=== PATIENT | female | born 1990 | race Caucasian/White ===

== ENCOUNTER → 2017-10-30 | Day surgery (SDC) | payer BC ==
[~2017-10-30] MED LIST: Oxytocin 10 UNITS/ML VIAL ONE
[2017-10-30 15:03] VITALS: BMI 28.0
== END ==
LOC: L&D/OP 14:30
PROVIDERS: ATTEND Family Medicine
DX: O47.9 False labor, unspecified (principal); O26.859 Spotting complicating pregnancy, unspecified trimester; Z79.899 Other long term (current) drug therapy
CPT/HCPCS: 99282

== ENCOUNTER 2017-10-31 00:13 | Inpatient (IN) | payer BC ==
[2017-10-31] MEDS ORDERED: Butorphanol Tartrate 1 MG/ML VIAL SLOW IVP PRN (02:02)
[2017-10-31] MEDS ORDERED: Ondansetron HCl/PF 4 MG/2 ML Vial IVP PRN ×2 (02:02→08:57)
[2017-10-31] MEDS ORDERED: Acetaminophen 500 MG TAB PO PRN (02:02)
[2017-10-31] MEDS ORDERED: Promethazine HCl 25 MG/ML VIAL IM PRN ×2 (02:02→05:19)
[2017-10-31 02:06] LABS: Hemoglobin 14.4 g/dL (12.0-16.0); Mean Corpuscular HGB CONC 33.9 g/dL (32.0-36.0); Mean Corpuscular Hemoglobin 31.1 pg (27.0-31.0); Mean Corpuscular Volume 91.7 fL (78.0-98.0); Mean Platelet Volume 7.7 fL (7.4-10.4); Platelet Count 249 thou/uL (130-400); Red Blood Cell (RBC) Count 4.64 mill/uL (4.20-5.40); White Blood Cell (WBC) Count 17.5 thou/uL (4.8-10.8)
[2017-10-31] MEDS ORDERED: Ibuprofen 800 MG TAB PO PRN (02:15)
[2017-10-31] MEDS ORDERED: Carboprost 250 MCG/ML AMP IM PRN (02:15)
[2017-10-31] MEDS ORDERED: NS / Oxytocin 40 units/1000ml 1,000 ML IV SCH (02:15)
[2017-10-31] MEDS ORDERED: Lidocaine 1% (PF) 30 ML VIAL SC PRN (02:15)
[2017-10-31] MEDS ORDERED: Methylergonovine 0.2 MG/ML VIAL IM PRN (02:15)
[2017-10-31] MEDS ORDERED: NS w/ Oxytocin 10 units 500 ML IV SCH ×2 (02:15)
[2017-10-31] MEDS ORDERED: Misoprostol 200 MCG TAB RC PRN (02:15)
[2017-10-31] MEDS ORDERED: HYDROcodone/Acetaminophen 5/325 mg Tablet PO PRN ×3 (02:15→17:30)
[2017-10-31 02:37] VITALS: BMI 32.4
[2017-10-31] MEDS: Lactated Ringer's 1,000 ML IV SCH ×2 (02:51→02:58)
[2017-10-31 03:18] LABS: Hep B Surf Ag Non-Reactive S/CO (NonReactive)
[2017-10-31] MEDS ORDERED: CEFAZOLIN/Water 2 GM/20 ML SYRINGE ONE (04:39)
[2017-10-31] MEDS ORDERED: Bicitra 30 ML UDCUP ONE (04:39)
[2017-10-31] MEDS ORDERED: Azithromycin 500 MG in Sodium Chloride 0.9% 250 ML 250 ML IVPB SCH (04:45)
[2017-10-31] MEDS ORDERED: Bicitra 30 ML UDCUP PO SCH (04:45)
[2017-10-31] MEDS ORDERED: CEFAZOLIN/Water 2 GM/20 ML SYRINGE SLOW IVP SCH (04:45)
--- NOTE | 2017-10-31 04:45 | PDOC.EVN ---
Event Note - Event Note Event Note: I came to bedside for recurrent variable decels on FHT monitoring. Attempted interventions include repositioning, IV fluids, O2 by facemask. I performed AROM with clear fluid and placed IUPC for amnioinfusion, 750ml in the infusion and no change in the declerations., Now they are appearing more late in character and some are prolonged up to 2 minutes. CTX are Q2 minutes. Some response to scalp stim but overall non-reassuring. Discussed at length with patient and family. They and I agree would be the best option for delivery at this time. SVE . Anesthesia and Dr. Ellison notified and consulted. Ancef and azithromycin ordered. Will proceed with primary C- section.
[2017-10-31] MEDS ORDERED: Oxytocin 10 UNITS/ML VIAL ONE (04:50)
[2017-10-31] MEDS ORDERED: Lidocaine 1% PF 5 ML VIAL ONE (04:50)
[2017-10-31] MEDS ORDERED: ePHEDrine/0.9% NaCl/PF SYRINGE 50 mg/10 ml ONE (04:50)
[2017-10-31] MEDS ORDERED: Ondansetron HCl/PF 4 MG/2 ML Vial ONE ×2 (04:50→13:58)
[2017-10-31] MEDS ORDERED: Bupivacaine 0.75% W/DEXTROSE 8.25% 2 ML AMP ONE (04:50)
[2017-10-31] MEDS ORDERED: Morphine PF 1 MG/ML SYR ONE (04:50)
[2017-10-31] MEDS ORDERED: HYDROmorphone 2 MG/ML VIAL SLOW IVP PRN (05:18)
[2017-10-31] MEDS ORDERED: Meperidine HCl/PF 25 MG/ML VIAL SLOW IVP PRN (05:18)
[2017-10-31] MEDS ORDERED: Naloxone HCl 0.4 mg/ml Vial IVP PRN ×2 (05:19)
[2017-10-31] MEDS ORDERED: Naloxone HCl 0.4 mg/ml Vial IV PRN (05:19)
[2017-10-31] MEDS ORDERED: Promethazine HCl 25 MG SUPP PR PRN (05:19)
[2017-10-31] MEDS ORDERED: diphenhydrAMINE 50 MG/ML VIAL IVP PRN (05:19)
[2017-10-31] MEDS ORDERED: Eucerin (Mineral Oil/Petrolatum,White) 30 gm Jar TOP PRN (05:19)
[2017-10-31 05:26] LABS: Actual Bicarbonate (HCO3a) 20.6 mEq/L (22-28); Analyzer IN Cardio OR; Base Excess (BEa) -7.9 mEq/L (-2.0 to +3.0)
[2017-10-31] MEDS ORDERED: Ketorolac Tromethamine 30 MG/ML VIAL IVP SCH (05:30)
[2017-10-31] MEDS ORDERED: Communication Order-Pharmacy FS SCH (05:30)
--- NOTE | 2017-10-31 05:53 | OP ---
DATE OF PROCEDURE: 10/31/2017 PREOPERATIVE DIAGNOSIS: Nonreassuring heart rate tracing at 8 cm at 41 weeks gestation. POSTOPERATIVE DIAGNOSES: 1. Nonreassuring heart rate tracing at 8 cm at 41 weeks gestation. 2. Nuchal cord. PROCEDURE: Primary low transverse section without extension. SURGEON: Philip Ellison M.D. RESPIRATORY THERAPIST: Misha Phan M.D. ANESTHESIA: Spinal, [place], [employer]. ESTIMATED BLOOD LOSS: Approximately 750 mL. QBL: Pending. MEDICATIONS: Two grams Ancef and 500 Zithromax perioperatively. DEEP VENOUS THROMBOSIS PROPHYLAXIS: SCDs. DRAINS: Decker to gravity. SPECIMENS REMOVED: Placenta with 3-vessel cord to pathology. OPERATIVE FINDINGS: 1. Vigorous male , nuchal cord x1, cephalic presentation, 8 and 9 Apgars, weight pending. 2. Cord gas 7.20 pH. 3. Normal appearing uterus, tubes, and ovaries at the end of the procedure. DISPOSITION: To the recovery room in good condition. COUNTS: Correct x2. DESCRIPTION OF OPERATIVE PROCEDURE: After obtaining proper informed consent, the patient was taken t o the operating room where spinal was achieved without difficulty. Patient was noted to have FHTs in the 110s. After spinal she was prepped and draped in the usual manner. Pfannenstiel incision was m mayra and carried sharply down the fascia. The midline was incised sharply and superior and laterally with curved Germain scissors. The rectus dissected off sharply superiorly and inferiorly, divided in th e midline. Peritoneum entered bluntly, taking care to avoid trauma to the underlying viscera. The A josh 0 retractor placed inside. Vesicouterine peritoneal fold identified. A low transverse hystero antoinette incision made without difficulty. Clear fluid was noted upon entry into the uterine cavity and the incision was extended superior and laterally with finger fractionization. Infant's head easily e levated to hysterotomy, the rest of the infant delivered. Cord clamped and cut and handed off to blair team in attendance. Cord gas obtained and usual cord blood sample obtained. Placenta delivere d manually and sent for pathology. Hysterotomy noted be without extension and the uterus was left in situ, was closed using a running locking #1 Monocryl suture x1. Gutters were irrigated out bilatera lly and reinspection of hysterotomy revealed it to be dry. The Morgan 0 retractor was removed. Coun ts were correct x1 at this point in time. Rectus inspected and noted to be dry. Fascia reapproximat ed with running continuous 0 PDS suture x1. Subcutaneous tissue irrigated, reinspected with Bovie ca utery, reapproximated using a 2-0 plain gut. Skin reapproximated using 4-0 Monocryl subcuticular and Dermabond. The patient was taken to the recovery room in good condition.
[2017-10-31 06:18] LABS: Syphilis Antibody Nonreactive (Nonreactive); Syphilis Antibody Index 0.03 S/CO (<1.00 Non-Reactive)
[2017-10-31] MEDS ORDERED: Ketorolac Tromethamine 30 MG/ML VIAL ONE (07:42)
[2017-10-31] MEDS: Ketorolac Tromethamine 30 MG/ML VIAL IVP PRN ×2 (07:43→16:18)
[2017-10-31] MEDS ORDERED: diphenhydrAMINE 25 MG CAP PO PRN (08:57)
[2017-10-31] MEDS ORDERED: Lanolin Ointment 7 GM TUBE TOP PRN (08:57)
[2017-10-31] MEDS ORDERED: Bisacodyl 10 MG SUPP PR PRN (08:57)
[2017-10-31] MEDS ORDERED: Adacel (T-DAP) 0.5 ML VIAL IM ONE (08:57)
[2017-10-31] MEDS: Docusate Calcium (SURFAK) 240 MG CAP PO SCH ×2 (14:19→21:48)
[2017-11-01] MEDS: Ketorolac Tromethamine 30 MG/ML VIAL IVP PRN (00:26)
[2017-11-01] MEDS: Sodium Chloride 0.9% 10 ML ONE ×2 (00:27→00:33)
[2017-11-01] MEDS: Simethicone Chewable 80 MG TAB PO PRN ×3 (00:27→20:28)
[2017-11-01] MEDS ORDERED: Sodium Chloride 0.9% 10 ML ONE (00:33)
[2017-11-01] MEDS: Ibuprofen 800 MG TAB PO SCH ×3 (06:16→21:16)
[2017-11-01] MEDS: HYDROcodone/Acetaminophen 5/325 mg Tablet PO PRN ×3 (06:31→20:15)
[2017-11-01 06:49] LABS: Hemoglobin 11.8 g/dL (12.0-16.0); Mean Corpuscular HGB CONC 33.2 g/dL (32.0-36.0); Mean Corpuscular Hemoglobin 31.1 pg (27.0-31.0); Mean Corpuscular Volume 93.4 fL (78.0-98.0); Mean Platelet Volume 7.1 fL (7.4-10.4); Platelet Count 218 thou/uL (130-400); Red Blood Cell (RBC) Count 3.81 mill/uL (4.20-5.40)
[2017-11-01] MEDS: Docusate Calcium (SURFAK) 240 MG CAP PO SCH ×2 (08:36→20:15)
--- NOTE | 2017-11-01 09:19 | PDOC.PP ---
Post Progress Note Post Day #: 1 Subjective: Doing well, pain controlled, well. PO intake tolerated: yes Flatus: yes Ambulation: yes Vital Signs (12 hours) Temp Pulse Resp BP Pulse Ox 11/01/17 08:46 98.6 F 81 20 111/65 97 11/01/17 06:00 97.5 F L 86 20 109/67 11/01/17 02:00 18 11/01/17 00:15 98.4 F 104 H 20 118/68 10/31/17 22:10 18 Weight Weight 195 lb - Physical Examination General: NAD Cardiovascular: no m/r/g, RRR Respiratory: clear to auscultation bilaterally, non-labored breathing Abdominal: + bowel sounds, lochia, no distention, appropriately TTP Skin: CS incision dry & intact, no rash Psychiatric: A&Ox3, normal affect Result Diagrams: 11/01/17 06:02 Additional Labs: Post Labs Blood Type B POSITIVE 10/31/17 01:50 Hep Bs Antigen Non-Reactive S/CO (NonReactive) 10/31/17 01:50 (1) S/P primary low transverse Code(s): Z98.891 - HISTORY OF UTERINE SCAR FROM PREVIOUS SURGERY Status: Acute - Assessment/Plan Routine post op care COntinue to work on Ambulate D/C likely tomorrow
[2017-11-02] MEDS: Ibuprofen 800 MG TAB PO SCH (05:04)
[2017-11-02] MEDS: Simethicone Chewable 80 MG TAB PO PRN (05:04)
[2017-11-02] MEDS: HYDROcodone/Acetaminophen 5/325 mg Tablet PO PRN ×2 (05:05→11:15)
[2017-11-02 08:27] VITALS: BP 114/69; TEMP 99
[2017-11-02] MEDS: Docusate Calcium (SURFAK) 240 MG CAP PO SCH (08:47)
== END 2017-11-02 11:58 | disposition home or self-care (01) | DRG 766 ==
LOC: L&D/OP 00:13 → L&D 03:54 → 3SW 08:22
PROVIDERS: ADMIT Family Medicine; ATTEND Family Medicine
PROC: 10D00Z1 Extraction of Products of Conception, Low, Open Approach (ICD-10-PCS; principal; 2017-10-31)
DX: O76 Abnormality in fetal heart rate and rhythm complicating labor and delivery (principal); Z3A.41 41 weeks gestation of pregnancy; Z37.0 Single live birth; O69.81X0 Labor and delivery complicated by cord around neck, without compression, not applicable or unspecified
CPT/HCPCS: 36415; 51702; 82805; 85027; 86780; 86850; 86900; 86901; 87340; 88307; 99282; 99285; A4216; J0456; J1885; J2001; J2274; J2405; J2590; J3490; J7050